=== PATIENT | female | born 1950 | race Caucasian/White ===

== ENCOUNTER → 2018-02-26 | Outpatient (CLI) | payer OTHER ==
[~2018-02-26] VITALS: Ht 165.1 cm; Wt 113.4 kg
[~2018-02-26] MED LIST: AUGMENTIN 875875 MG PO; CHROMIUM PIC1000 MCG PO; CLARITIN10 M2 PO; COZAAR100 MG PO; FISH OIL 1,001000 M2 PO; HYDROCHLOROTHIA25 M2 PO; K-DUR10 MEQ PO; LANSOPRAZOLE30 MG PO; MACRODANTIN50 MG PO; MAGNESIUM OXID250 MG PO; MAGOX 400400 MG PO; METFORMIN HCL500 MG PO; MOBIC7.5 MG PO; OMEPRAZOLE40 MG PO; ORTHO EST PO; PROBIOTIC1 EAC1 PO; PROVERA2.5 MG PO; SIMVASTATIN40 MG PO; TAMSULOSIN HCL0.4 M1 PO; TOPROL XL50 MG PO; VITAMIN D1000 UNI1 PO; XANAX 0.25 MG0.25 MG PO; ZPAK PO
--- NOTE | ~2018-02-26 | HPC ---
[facility] [address] [place] [address] PAIN MANAGEMENT CONSULTATION Name: CAROLYN MCDONALD Room #: REG GLORIA Harrison#: [id number] Admission: 02/26/18 Attend Phys: Kaleb Womack MD Discharge: Date of : 54 Report #: [id number] THIS REPORT FOR: //name// CC: Maynor Womack DATE OF SERVICE: 02/26/2018 CHIEF COMPLAINT: Back and leg pain. HISTORY OF PRESENT ILLNESS: The patient is a 67-year-old female who has been referred to the pain clinic for evaluation of back and leg pain. The patient has noted some worsening of her pain since July of this year. It involves her low back area. There is a burning sensation and it radiates down into her right lower back area. Pain is made worse with walking as well as with activities of daily living such as cleaning her house. Pain improves somewhat when she sits down. Light exercise is not very problematic. If she walks for a prolonged period of time or stands for a prolonged period of time, particularly working in her kitchen, she can notice a worsening of her pain with exacerbation or discomfort with radiation down into the right leg. Describes it as periodic, intermittent and aching, gnawing and tender. Rates it as 4-6 at this juncture. 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 ALLERGIES: No known drug allergies. MEDICATIONS: Lactobacillus, magnesium 250 mg, Claritin 10 mg, Xanax 0.25 mg p.r.n. anxiety, chromium 1000 mcg, fish oil 1000 mg, vitamin D 1000 units, Meloxicam 7.5 mg, omeprazole 40 mg, metformin 500 mg, potassium 10 mEq, hydrochlorothiazide 25 mg, Cozaar 100 mg, metoprolol XL 25 mg. PAST MEDICAL HISTORY: Obesity, lumbar disk disease, tendinitis, chronic maxillary sinusitis, irritable bowel syndrome, hyperlipidemia, hypertension, heart murmur, kidney stones. PAST SURGICAL HISTORY: Cholecystectomy in 1990. SOCIAL HISTORY: She is retired, has been off work for years. 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 REVIEW OF SYSTEMS: Generally good health, night sweats, wears glasses, shortness of breath. LABORATORY DATA: No new laboratory values are available at the time of our interview. PAIN CLINIC ASSESSMENT/PQRS: [address] [address] PAIN MANAGEMENT CONSULTATION Name: CAROLYN MCDONALD [facility] [id number] Admission: 02/26/18 Attend Phys: Kaleb Womack MD Discharge: Date of : 54 Report #: [id number] 1. History of osteoarthritis. The patient has not been treated for osteoarthritis. 2. Rheumatoid arthritis. The patient has not been treated for rheumatoid arthritis per her report. 3. Height 5 feet 5 inches. Weight 250 pounds, BMI is 41.6. 4. Vital signs: Blood pressure 134/77, pulse 60, respiratory rate 15, room air saturation is 97%. 5. Pain intensity 4-6/10. 6. Fall risk. The patient has not fallen in the last 3 months. 7. Blood thinner. The patient is not on a blood thinning medication. 8. History of hypertension. The patient has been treated for hypertension. 9. Opioid therapy greater than 6 weeks. The patient is not receiving opioid medications. 10. Functional assessment tool, low for opioid use. Pain impact score 41/70. 11. Recreational drug use. The patient denies use of recreational drugs. 12. Tobacco: The patient denies use of tobacco. 13. Alcohol: The patient denies frequent use of alcoholic beverages. PHYSICAL EXAMINATION: GENERAL: The patient is a well-developed, obese white female, appears her stated age. She is alert and oriented x3. Affect is appropriate. Speech is fluent. HEAD, EYES, EARS, NOSE, AND THROAT: Normocephalic, atraumatic. Extraocular eye muscles intact. Sclerae nonicteric. Mucous membranes are moist. NECK: Without adenopathy or JVD. Good range of motion. HEART: Regular rate. S1, S2. Slight murmur. ABDOMEN: Nontender. Bowel sounds present. EXTREMITIES: Upper extremity muscle strength is judged to be 5/5 for the major muscle groups in the upper extremity. Deep tendon reflexes are +1 biceps. The patient without significant scoliosis, kyphosis or lordosis. The patient has pain and discomfort in the lower portion of her back pain is radiating down into the L4-L5 area on the right. Notes some weakness there. Complains of pain and discomfort in the low back area in the lumbar area that increases with prolonged standing. Notes the pain and discomfort, which radiates down in the L4-L5 distribution on the right. IMPRESSION: 1. Lumbar radiculopathy, L4-L5 distribution. 2. Obesity. 3. Lumbar disk disease. 4. Tendinitis. 5. Chronic maxillary sinusitis. 6. Irritable bowel syndrome. 7. Hyperlipidemia. 8. Hypertension. 9. Heart murmur. [facility] [address] [place] [address] PAIN MANAGEMENT CONSULTATION Name: CAROLYN MCDONALD Room #: REG GLORIA Terry#: [id number] Admission: 02/26/18 Attend Phys: Kaelb Womack MD Discharge: Date of : 54 Report #: [id number] 10. Kidney stones. RECOMMENDATIONS: We discussed treatment options with the patient. Risks and benefits of an epidural steroid injection were discussed. Possible complications were discussed as well. They include but are not limited to infection, increased muscle soreness, headache, bleeding, worsening of pain, no improvement in pain and the patient elects to proceed. PROCEDURE NOTE: The patient was taken to the procedure area. She was assisted in getting on the examination table. Her back was sterilely prepped with a Betadine solution. The fluoroscopy using anterior, posterior as well as lateral viewing were implemented. A 25-gauge needle was then advanced into the right paraspinous approach at L4-L5. A 17-gauge Tuohy was then placed in the epidural space. There was no CSF, heme or paresthesia. A total of 80 mg Depo-Medrol, 40 mg of triamcinolone and 2 mL of 0.25% bupivacaine was injected. The patient's pain decreased from 6 at the beginning to 0 at the time of discharge. She will follow up in the future as needed. We would like to thank you for letting us to participate in her care. We hope she continues to improve. By: [id number] Kaleb Womack MD /MIKIE
[2018-02-26 10:53] VITALS: BP 134/77
== END | disposition home or self-care (01) ==
LOC: PAIN 02-19 13:41
DX: M51.16 Intervertebral disc disorders with radiculopathy, lumbar region (principal); I10 Essential (primary) hypertension; E78.5 Hyperlipidemia, unspecified; E66.09 Other obesity due to excess calories; J32.0 Chronic maxillary sinusitis; Z87.19 Personal history of other diseases of the digestive system; Z90.49 Acquired absence of other specified parts of digestive tract; Z79.899 Other long term (current) drug therapy; Z87.442 Personal history of urinary calculi; Z98.890 Other specified postprocedural states

== ENCOUNTER → 2018-06-11 | Outpatient (CLI) | payer OTHER ==
[~2018-06-11] VITALS: Ht 165.1 cm; Wt 113.3 kg
[2018-06-11 13:35] VITALS: BP 135/66
--- NOTE | 2018-06-11 14:11 | NUR ---
Pain Clinic Assessment: 1. History of Osteoarthritis: History of Rheumatoid Arthritis: 2. Height: 5 ft. 5 in. 165.1 cm. Weight: 249.8 lb. oz. 113.309 kg. Patient's BMI: 41.6 3. Vital Signs: BP: 135/66 Pulse: 68 Resp: 16 Temp: 02 Sat: 98 ECG Mon: 4. Pain Intensity: 5-6 5. Fall Risk: Dizziness: N Needs help standing or walking: N Fallen in the last 3 months: N Fall risk comments: 6. Patient on Blood Thinner: None 7. History of Hypertension: Y 8. Opioid Therapy greater than 6 weeks: N Opiate Contract Signed: 9. Risk Assessment Tool Provided: 10. Functional Assessment Tool: 11. Recreational Drug Use: Never Drug Type: Tobacco Use: Never Smoker Tobacco Type: Amount or Packs/day: How Many Years: Alcohol Use: No Frequency: Quant:
== END | disposition home or self-care (01) ==
LOC: PAIN 07:14
DX: M54.16 Radiculopathy, lumbar region (principal); Z79.899 Other long term (current) drug therapy; Z79.84 Long term (current) use of oral hypoglycemic drugs

== ENCOUNTER → 2018-08-27 | Outpatient (CLI) | payer OTHER ==
[~2018-08-27] VITALS: Ht 165.1 cm; Wt 113.4 kg
[~2018-08-27] MED LIST changes: +MOBIC15 MG PO
--- NOTE | ~2018-08-27 | HPC ---
[facility] [address] [place] [address] PAIN MANAGEMENT CONSULTATION Name: CAROLYN MCDONALD Christopher Room #: REG GLORIA Harrison#: [id number] Admission: 08/27/18 ������������������ Attend Phys: Kaleb Womack MD Discharge: ������������������ Date of : 54 Report #: [id number] THIS REPORT FOR: //name// CC: Maynor Womack DATE OF SERVICE: 08/27/2018 CHIEF COMPLAINT: Return of pain in the low back area. It was helped by the last injection. HISTORY: The patient is a 67-year-old female who has been seen in the Pain Clinic in the past. She suffers from lumbar radiculopathy. She is experiencing pain that has been radiating down into her low back area. She has had some worsening of her pain. She noticed some worsening of the pain in June. She was found to have a sinus infection. She also was treated for urinary tract infection. She has returned to the Pain Clinic for treatment. Notes that certain shoes exacerbate her pain and discomfort. States that she has spoken with her urologist and that she is no longer showing signs of urinary tract infection. Notes that sometimes her pain becomes quite problematic and she finds it difficult to walk around the block. 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 She notes some increased pain when she is lying in a reclining position at home. States that she does chair yoga. Sometimes this exacerbates her pain. She is considering water aerobics. States that family members are engaged in this activity and finds it is helpful. She has had some discomfort in her left neck area. States that Dr. Ann had performed a trigger point in this area in the past and she found that beneficial. Overall, she would like to undergo an epidural steroid injection to help with the pain and discomfort which she is experiencing down in her back and which is radiating down into the lateral portion of her right leg. ALLERGIES: No known drug allergies. MEDICATIONS: Probiotic lactobacillus, magnesium oxide 250 mg, Claritin 10 mg, alprazolam 0.25 mg, chromium 1000 mg, fish oil 1000 mg, vitamin D 1000 mg, Mobic 7.5 mg, omeprazole 40 mg, metformin 500 mg, potassium 10 mEq, hydrochlorothiazide 25 mg, losartan 100 mg, metoprolol XL 25 mg at bedtime. PAIN CLINIC ASSESSMENT/PQRS: 1. History of osteoarthritis. The patient has some arthritic changes in the lower portion of her back. She has not been treated for rheumatoid arthritis. She does have some cervical spondylosis. 2. Height 5 feet 5 inches, weight 250 pounds, BMI is 41.6. 3. Vital Signs: Blood pressure 126/80, pulse 57, respiratory rate 20, room air saturation 99%. [place] [address] PAIN MANAGEMENT CONSULTATION Name: CAROLYN MCDONALD Christopher Room #: REG [facility]#: [id number] Admission: 08/27/18 ������������������ Attend Phys: Kaleb Womack MD Discharge: ������������������ Date of : 54 Report #: [id number] 4. Pain intensity 5/10. 5. Fall History: The patient has not fallen in the last 3 months. 6. Blood thinner. The patient is not on a blood thinning medication. 7. Hypertension. The patient is being treated for hypertension. 8. Opioids. The patient is not on a chronic opioid medication. 9. Risk assessment tool, low for opioid use. 10. Functional assessment tool 41/70. 11. Recreational drug use. The patient denies use of recreational drugs. 12. Tobacco: The patient denies use of tobacco. 13. Alcohol: The patient denies frequent use of alcoholic beverages. PHYSICAL EXAMINATION: GENERAL: The patient is a well-developed, somewhat obese white female, appears her stated age. She is alert and oriented x 3. Her affect is appropriate. Speech is fluent. HEENT: Normocephalic, atraumatic. Extraocular eye muscles intact. Sclerae nonicteric. Mucous membranes are moist. NECK: Without adenopathy or JVD. The patient has some pain and discomfort in the left shoulder area. HEART: Regular rate. ABDOMEN: Nontender. Bowel sounds present. EXTREMITIES: Upper extremity muscle strength is judged to be 5-/5 for the major muscle groups in the upper extremity. The patient has pain in her lower back with some evidence of scoliosis. The patient without significant kyphosis or lordosis. IMPRESSION: 1. Obesity. 2. Lumbar disc disease. 3. Tendinitis. 4. Chronic maxillary sinusitis. 5. Irritable bowel syndrome. 6. Hyperlipidemia. 7. Hypertension. 8. Kidney stones. RECOMMENDATIONS: We discussed treatment options with the patient. The patient provided a KUB. She thought that she had kidney stones. Note was made of the scoliosis in the lower portion of her back with bending toward the left. She feels she would like to proceed with a lumbar epidural steroid injection. She is having pain that is radiating down the right leg to the lateral portion of the leg down into the level of her ankle. We discussed treatment options. Risks and benefits of the procedure, which could include but are not limited to infection, worsening of pain, no improvement in pain, spinal trauma and spinal headache were discussed. The patient elects to proceed. [address] [address] PAIN MANAGEMENT CONSULTATION Name: CAROLYN MCDONALD Room #: [facility]#: [id number] Admission: 08/27/18 ������������������ Attend Phys: Kaleb Womack MD Discharge: ������������������ Date of : 54 Report #: [id number] PROCEDURE NOTE: The patient was assisted in getting on the examination table. Her back was sterilely prepped with a Betadine solution. A 0.25% bupivacaine was infiltrated at the L4-L5 area. A 17-gauge Tuohy with loss of resistance technique was used to gain access to the epidural space. There was no CSF, heme or paresthesia. Total of 80 mg Depo-Medrol, 40 mg triamcinolone and 2 mL of 0.25% bupivacaine was injected. The patient will consider the possibility of wearing a brace to help with the pain with activities of daily living. We will refer her to one of the clinics in the future. We would like to thank you for letting us participate in her care. We hope she continues to improve. ��������������������������������������������� ���������������������������������������� By: ��������������������������������������������� [id number] Kaleb Womack MD /nt
[2018-08-27 10:50] VITALS: BP 126/80
--- NOTE | 2018-08-27 11:18 | NUR ---
Pain Clinic Assessment: 1. History of Osteoarthritis: History of Rheumatoid Arthritis: 2. Height: 5 ft. 5 in. 165.1 cm. Weight: 250.0 lb. oz. 113.400 kg. Patient's BMI: 41.6 3. Vital Signs: BP: 126/80 Pulse: 57 Resp: 20 Temp: 02 Sat: 99 ECG Mon: 4. Pain Intensity: 5 5. Fall Risk: Dizziness: N Needs help standing or walking: N Fallen in the last 3 months: N Fall risk comments: 6. Patient on Blood Thinner: None 7. History of Hypertension: Y 8. Opioid Therapy greater than 6 weeks: N Opiate Contract Signed: 9. Risk Assessment Tool Provided: LOW 10. Functional Assessment Tool: 11. Recreational Drug Use: Never Drug Type: Tobacco Use: Never Smoker Tobacco Type: Amount or Packs/day: How Many Years: Alcohol Use: No Frequency: Quant:
== END | disposition home or self-care (01) ==
LOC: PAIN 08-08 13:34
DX: M51.16 Intervertebral disc disorders with radiculopathy, lumbar region (principal); M77.9 Enthesopathy, unspecified; J32.0 Chronic maxillary sinusitis; K58.9 Irritable bowel syndrome, unspecified; E78.5 Hyperlipidemia, unspecified; I10 Essential (primary) hypertension; M19.90 Unspecified osteoarthritis, unspecified site; Z79.899 Other long term (current) drug therapy; Z79.84 Long term (current) use of oral hypoglycemic drugs

== ENCOUNTER → 2020-03-28 | Outpatient (CLI) | payer OTHER ==
[~2020-03-28] MED LIST changes: +ELIQUIS5 MG PO
== END ==
LOC: LAB 08:08
PROVIDERS: ATTEND Specialist
DX: Z01.812 Encounter for preprocedural laboratory examination (principal); Z20.828 Contact with and (suspected) exposure to other viral communicable diseases